=== PATIENT | female | born 1940 | race Caucasian/White ===

== ENCOUNTER 2018-07-24 17:09 | Emergency (ER) | payer MEDICARE, BC ==
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
[2018-07-24 17:56] VITALS: BP 141/60
== END 2018-07-24 18:05 | disposition short-term general hospital (02) ==
LOC: UCCORT 17:09
DX: R10.13 Epigastric pain (principal); E42 Marasmic kwashiorkor; I10 Essential (primary) hypertension
CPT/HCPCS: 93005; 99203; G0463